=== PATIENT | female | born 1995 | race Caucasian/White ===

== ENCOUNTER 2017-12-13 02:21 | Emergency (ER) | payer MEDICAID ==
[~2017-12-13] VITALS: Ht 157.5 cm; Wt 65.8 kg
[~2017-12-13 02:21] MED LIST: VITAFOL-OB+DHA1 EACH PO
== END 2017-12-13 03:41 | disposition home or self-care (01) ==
LOC: ED 02:21
DX: J20.9 Acute bronchitis, unspecified (principal); F17.200 Nicotine dependence, unspecified, uncomplicated
CPT/HCPCS: 71046; 99283

== ENCOUNTER 2018-01-17 00:50 | Emergency (ER) | payer SELFPAY ==
[~2018-01-17] VITALS: Ht 157.5 cm; Wt 65.8 kg
[2018-01-17] MEDS ORDERED: PROAIR HFA8.5 GM INH (02:48)
== END 2018-01-17 03:31 | disposition home or self-care (01) ==
LOC: ED 00:50
DX: J45.901 Unspecified asthma with (acute) exacerbation (principal); F17.200 Nicotine dependence, unspecified, uncomplicated
CPT/HCPCS: 99282

== ENCOUNTER 2018-05-01 04:42 | Emergency (ER) | payer OTHER ==
[~2018-05-01] VITALS: Ht 157.5 cm; Wt 6583.4 kg
[~2018-05-01 04:42] MED LIST changes: +PROAIR HFA8.5 GM INH
[2018-05-01] MEDS ORDERED: ZOFRAN ODT4 MG SL ×2 (04:56→04:59)
[2018-05-01] MEDS ORDERED: IMODIUM A-D2 M2 PO ×2 (04:57→05:00)
== END 2018-05-01 06:08 | disposition home or self-care (01) ==
LOC: ED 04:42
DX: K52.9 Noninfective gastroenteritis and colitis, unspecified (principal); F17.200 Nicotine dependence, unspecified, uncomplicated; Z79.899 Other long term (current) drug therapy
CPT/HCPCS: 96372; 99283; J2765